=== PATIENT | female | born 1945 | race Caucasian/White ===

== ENCOUNTER 2023-10-01 14:23 | Outpatient (AMB) | payer MEDICARE, OTHER, SELFPAY ==
--- NOTE | 2023-10-01 15:08 | AM.OFFWIN_ITS ---
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 Patient was being visited by her daughter today daughter noticed the patient to be acting strangely not like herself denies fevers chills or back pain to her knowledge. PFSH Social History Patient Tobacco Use Status: Never used Tobacco Physical Exam Vital Signs: Last Vital Signs Pulse 60 10/01/23 15:27 BP 122/70 10/01/23 15:27 Pulse Ox 99 10/01/23 15:27 Oxygen Delivery Method Room Air 10/01/23 15:27 Const General: cooperative, healthy appearing, no acute distress and alert Orientation/consciousness: patient oriented x3 Limitations: no limitations HEENT Head: Yes normal to inspection Ears: hearing grossly normal bilaterally General nose exam: Normal external nose present Resp Effort & Inspection: normal respiratory effort and able to speak in complete sentences Cardio Rate: regular rate Back/Spine/Pelvis Other: No CVA tenderness Skin General skin exam: no rashes or lesions noted Neuro General: patient oriented x3 Extrem General: Yes normal to inspection Results AMB Urinalysis, Automated UA Leukoctes 500 Nora/uL Last Edit by Leif Jensen CMA on 10/01/23 15:4 2 UA Nitrite Negative Last Edit by Leif Jensen CMA on 10/01/23 15:42 UA Urobilinogen 0.2 mg/dL Last Edit by Leif Jensen CMA on 10/01/23 15 :42 UA Protein 100 mg/dL Last Edit by Leif Jensen CMA on 10/01/23 15:42 UA pH 5.5 Last Edit by Leif Jensen CMA on 10/01/23 15:42 UA Blood 10 Heber/uL Last Edit by Leif Jensen CMA on 10/01/23 15:42 UA Specific [place] 1.030 Last Edit by Leif Jensen CMA on 10/01/23 15:42 UA Ketone Positive Last Edit by Leif Jensen CMA on 10/01/23 15:42 UA Bilirubin 0 mg/dL Last Edit by Leif Jensen CMA on 10/01/23 15:42 UA Glucose 0 mg/dL Last Edit by Leif Jensen CMA on 10/01/23 15:42 Results Reviewed Results Reviewed: Laboratory Last Values Urine pH (Auto) 5.5 10/01/23 15:41 Specific [place] (Auto) 1.030 10/01/23 15:41 Urine Protein (Auto) 100 mg/dL 10/01/23 15:41 Glucose (UA)(Auto) 0 mg/dL 10/01/23 15:41 Urine Ketones (Auto) Positive 10/01/23 15:41 Urine Blood (Auto) 10 He[place]/uL 10/01/23 15:41 Urine Nitrite (Auto) Negative 10/01/23 15:41 Urine Bilirubin (Auto) 0 mg/dL 10/01/23 15:41 Urine Urobilinogen (Auto) 0.2 mg/dL 10/01/23 15:41 Leukocyte Esterase (Auto) 500 Nora/uL 10/01/23 15:41 Assessment & Plan Assessment & Plan (1) UTI (urinary tract infection): Code(s): N39.0 - Urinary tract infection, site not specified Qualifiers: Urinary tract infection type: acute cystitis Hematuria presence: without hematuria Qualified Code(s): N30.00 - Acute cystitis without hematuria Plan: VSS. Exam was unremarkable urinalysis shows\positive UTI. No evidence of pyelo at this time will prescribe cefuroxime 500 mg b.i.d.. Strict return precautions and warning signs offered. Orders: Orders AMB Urinalysis Automated Today Z13.9 - Encounter for screening, unspecified Medications: New cefuroxime axetil 500 mg PO Q12H 7 days 14 tabs 0RF Coding Level of Care Code New Pt Level 4 (51119) Diagnoses Acute cystitis without hematuria N30.00 Urinary tract infection type: acute cystitis Hematuria presence: without hematuria
[2023-10-01 15:27] VITALS: BP 122/70; PULSE 60; O2SAT 99
== END 2023-10-01 15:57 | disposition home or self-care (01) ==
PROVIDERS: Visit Provider Physician Assistant
DX: N30.00 Acute cystitis without hematuria (principal)
CPT/HCPCS: 81003; 99204